=== PATIENT | male | born 1955 | race Caucasian/White ===

== ENCOUNTER 2017-12-22 11:18 | Emergency (ER) | payer MEDICARE ==
[~2017-12-22] VITALS: Ht 172.7 cm; Wt 72.6 kg
[~2017-12-22 11:18] MED LIST: ACETAMINOPHEN650 M5 PO; APAP650 PO; ASPIRIN325 PO; B COMPLETE1 EAC1 PO; BENAZEPRIL-HCT1 EA10 PO; BENAZEPRIL-HCT1 EACH PO; COLACE100 MG PO; DEPO-TESTO100 MG/1 M IM; DEPO-TESTO200 MG/1 M IM; DILAUDID4 MG PO; FISH OIL 1,001000 M2 PO; FLOMAX0.4 MG PO; HYDROCODON-ACE1 EAC7 PO; HYDROCODONE-AP1 EAC6 PO; INDOCIN25 MG/5 ML PO; INDOMETHACIN 2525 MG PO; METAMUCIL PAC1 UDPKT PO; MILK OF MA2400 MG/10 PO; MIRALAX17 GM PO; NITROGLYCERIN0.4 MG SUBLING; OSTEO BI-FLEX1 EAC1 PO; OSTEOMATRIX PO; OXYCODONE HCL 55 MG PO; OXYCONTIN10 M1 PO; PREDNISONE 10 M10 M1 PO; PREDNISONE 10 M10 MG PO; XANAX 0.5 MG0.5 MG PO; XARELTO10 MG PO; ZANAFLEX4 MG PO; ZOCOR20 MG PO
[2017-12-22 12:57] LABS: ABSOLUTE EOSINOPHILS 0.2 thou/uL (0.0-0.7); ABSOLUTE MONOCYTES 0.4 thou/uL (0.0-1.2); ABSOLUTE NEUTROPHILS 3.9 thou/uL (1.6-8.1); BASOPHILS 0.6 %; HEMATOCRIT 44.9 % (42.0-52.0); HEMOGLOBIN 15.4 gm/dL (14.0-18.0); LYMPHOCYTES 18.4 %; MCH 32.5 pg (26.0-34.0); MCHC 34.3 g/dL (28.0-37.0); MCV 94.8 fL (80.0-100.0); MONOCYTES 7.6 %; MPV 8.5 fl. (7.2-11.1); NUCLEATED RBCS 0 /100WBC; PLATELET COUNT* 301 thou/uL (150-400); POLYS 69.4 %; RBC 4.73 mil/uL (4.50-6.00); RDW-CV 12.4 % (10.5-14.5); WBC 5.6 thou/uL (4.0-11.0)
[2017-12-22 13:07] LABS: CALCIUM 8.6 mg/dL (8.5-10.1); POTASSIUM 4.1 mmol/L (3.5-5.1)
[2017-12-22 13:12] LABS: ALBUMIN 3.4 g/dL (3.4-5.0); TOTAL BILIRUBIN 0.3 mg/dL (<0.1-1.0); TOTAL PROTEIN 6.7 g/dL (6.4-8.2)
[2017-12-22 14:03] LABS: URINE BILIRUBIN NEGATIVE (Negative); URINE BLOOD NEGATIVE (Negative); URINE CLARITY CLEAR; URINE COLOR YELLOW; URINE GLUCOSE-RANDOM NEGATIVE (Negative); URINE KETONES NEGATIVE (Negative); URINE LEUKOCYTES-REFLEX NEGATIVE (Negative); URINE NITRITE-REFLEX NEGATIVE (Negative); URINE PROTEIN NEGATIVE (Negative); URINE SPECIFIC GRAVITY 1.025 (1.005-1.030); URINE UROBILINOGEN 0.2 E.U./dl (0.2-1.0)
[2017-12-22] MEDS ORDERED: FLOMAX0.4 MG PO (14:24)
[2017-12-22 14:59] VITALS: BP 97/67
== END 2017-12-22 15:00 | disposition home or self-care (01) ==
LOC: M.ERS 11:18
PROVIDERS: Nurse Practitioner Family
DX: R33.9 Retention of urine, unspecified (principal); R30.0 Dysuria; I10 Essential (primary) hypertension; E78.00 Pure hypercholesterolemia, unspecified; M19.90 Unspecified osteoarthritis, unspecified site; Z96.659 Presence of unspecified artificial knee joint

== ENCOUNTER 2020-03-15 12:17 | Emergency (ER) | payer OTHER ==
[~2020-03-15] VITALS: Ht 175.3 cm; Wt 79.4 kg
[2020-03-15] MEDS ORDERED: HYDROCODONE-IB1 EAC3 PO (12:29)
[2020-03-15] MEDS ORDERED: NORCO 5-325 TA1 EAC2 PO (13:51)
[2020-03-15] MEDS ORDERED: FLEXERIL PO (13:56)
[2020-03-15 13:57] VITALS: BP 127/79
== END 2020-03-15 13:58 | disposition home or self-care (01) ==
LOC: M.ERS 12:17
DX: M25.552 Pain in left hip (principal); M54.5 Low back pain; I10 Essential (primary) hypertension; E78.00 Pure hypercholesterolemia, unspecified; M06.9 Rheumatoid arthritis, unspecified; Z96.653 Presence of artificial knee joint, bilateral; Z90.89 Acquired absence of other organs

== ENCOUNTER → 2020-03-25 | Outpatient (CLI) | payer OTHER ==
[~2020-03-25] MED LIST changes: +FLEXERIL PO; +HYDROCODONE-IB1 EAC3 PO; +NORCO 5-325 TA1 EAC2 PO
== END ==
LOC: M.RAD 15:19
PROVIDERS: ATTEND Registered Nurse Diabetes Educator
DX: M16.12 Unilateral primary osteoarthritis, left hip (principal); M47.26 Other spondylosis with radiculopathy, lumbar region; M47.816 Spondylosis without myelopathy or radiculopathy, lumbar region; M54.32 Sciatica, left side

== ENCOUNTER → 2020-04-10 | Outpatient (CLI) | payer OTHER ==
[~2020-04-10] MED LIST changes: +DURAGESIC1 EAC5 TRANSDERM; +MEDROLDOSEPACK PO; +TESTONE CI200 MG/1 M IM; +TORADOL 10 MG T10 MG PO
--- NOTE | 2020-04-22 14:22 | PAINCON ---
[address] [address] PAIN MANAGEMENT CONSULTATION Name: FATOU HAYS Room: [facility] Iyer#: [id number] Admission: 04/10/20 Attend Phys: Graeme Gama MD Discharge: Date of : 57 Report #: [id number] THIS REPORT FOR: //name// cc: Mary Hurst Tammy RNP ~ THIS REPORT FOR: //name// CC: Graeme Hurst DATE OF SERVICE: 04/10/2020 PRIMARY CAREGIVER: Mary Hurst NP CHIEF COMPLAINT: Back and leg pain. HISTORY: The patient is a 64-year-old gentleman who has been referred to the pain clinic because of back and leg pain. The patient had undergone surgery in the past because of spinal stenosis. He sat on a toilet seat. Feels that he sat down a little more vigorously than he would have liked. He has been having pain and discomfort in the left leg that has become more problematic. He has been having some difficulty walking. He has used hydrocodone to help with the pain control. He has also used ibuprofen. Has some pain in his knees. He feels that his legs have given out on a couple of occasions. He has used Medrol Dosepak and does have problems with cataracts. He is considering surgery. ALLERGIES: No known drug allergies. CURRENT MEDICATIONS: Hydrocodone/ibuprofen 7.5/200 t.i.d., Flexeril 10 mg, Medrol Dosepak on 2 occasions. The patient has been on antibiotics because of a urinary tract infection. Flomax 0.4 mg, benazepril/hydrochlorothiazide 20/12.5, Zocor 20 mg, indomethacin 25 mg, alprazolam 0.5 mg, tizanidine 4 mg p.r.n. spasm. PAST MEDICAL HISTORY: Hypertension, hypercholesterolemia, rheumatoid arthritis, spinal stenosis, bilateral knee replacements, tonsillectomy as a child. PAST SURGICAL HISTORY: 1. Posterior cervical fusion. 2. Tendon repair, left hand. 3. Bilateral total knee arthroplasties. 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 He has a history significant for alcohol and cocaine use. Denied use of IV drugs. A 70-ewpf-ozid smoking history. Moderate alcohol [place] [address] PAIN MANAGEMENT CONSULTATION Name: FATOU HAYS Room: [employer]#: [id number] Admission: 04/10/20 Attend Phys: Graeme Gama MD Discharge: Date of : 57 Report #: [id number] PAIN CLINIC ASSESSMENT AND PQRS: 1. History of osteoarthritis. The patient has some osteoarthritic changes in his knees. He has had bilateral knee replacements. 2. Height 5 feet 9 inches, weight 179 pounds, BMI is 26. 3. Vital signs: Blood pressure 125/73, heart rate 86, respiratory rate 16, room air saturation 97%, temperature 98.2. 4. Pain intensity 1-2/10. 5. Fall history: The patient has not fallen in the last few weeks. 6. Blood thinner. The patient is not on a blood thinning medication. 7. Hypertension. The patient is being treated for hypertension. 8. Opioids greater than 6 weeks. The patient receives medication from his primary. 9. Risk assessment tool, moderate for opioid use. 10. Functional assessment tool, reviewed. 11. Recreational drug use: The patient is not using recreational drugs at this juncture. 12. Tobacco: The patient has smoked in the past. 13. Alcohol: The patient denies significant use of alcoholic beverages. PHYSICAL EXAMINATION: GENERAL: The patient is a well-developed, well-nourished white male. Appears his stated age. He is alert and oriented x 3. His affect is appropriate. Speech is fluent. HEENT: Normocephalic, atraumatic. Extraocular eye muscles intact. Sclerae nonicteric. Mucous membranes are moist. The patient is wearing a facial covering. NECK: Without adenopathy. Well-healed scar. EXTREMITIES: Upper extremity muscle strength judged to be 5-/5 for the major muscle groups in the upper extremity. Lower extremity, the patient has a well-healed scar in the lower portion of his back. Complains of pain and discomfort in the low back area with pain that is radiating down into the left sciatic nerve. Well-healed scars on the knees. IMPRESSION: Lumbar radiculopathy with L5-S1 dermatomal distribution involving the right leg. RECOMMENDATIONS: We would consider an epidural steroid injection. The patient states that he is going to have evaluation for cataract surgery. The patient will return to the Pain Clinic after he gets information regarding his cataract surgeries. We explained that steroids could be problematic with post-surgical healing. The patient will return to the Pain Clinic, at which time he will then be considered for an epidural steroid injection should his pain continue. [address] [address] PAIN MANAGEMENT CONSULTATION Name: FATOU HAYS Room: [facility] Judie.#: [id number] Admission: 04/10/20 Attend Phys: Graeme Gama MD Discharge: Date of : 57 Report #: [id number] We would like to thank you for letting us participate in his care. We hope he continues to improve. <ELECTRONICALLY SIGNED> By: Graeme Gama MD 04/22/20 1422 1233 [id number] Gama MD /[facility]
== END ==
LOC: M.PC 10:29
PROVIDERS: ATTEND Anesthesiology Pain Medicine
DX: M54.17 Radiculopathy, lumbosacral region (principal); I10 Essential (primary) hypertension; E78.00 Pure hypercholesterolemia, unspecified; M06.9 Rheumatoid arthritis, unspecified; Z96.653 Presence of artificial knee joint, bilateral; Z98.1 Arthrodesis status; Z68.26 Body mass index [BMI] 26.0-26.9, adult; Z79.891 Long term (current) use of opiate analgesic; Z79.899 Other long term (current) drug therapy

== ENCOUNTER 2020-04-14 13:30 | Emergency (ER) | payer OTHER ==
[~2020-04-14] VITALS: Ht 175.3 cm; Wt 78.0 kg
[~2020-04-14 13:30] MED LIST changes: -DURAGESIC1 EAC5 TRANSDERM; -MEDROLDOSEPACK PO; -TESTONE CI200 MG/1 M IM; -TORADOL 10 MG T10 MG PO
[2020-04-14] MEDS ORDERED: MEDROLDOSEPACK PO (18:28)
[2020-04-14] MEDS ORDERED: TORADOL 10 MG T10 MG PO (18:28)
[2020-04-14 18:41] VITALS: BP 112/74
[2020-04-15] MEDS ORDERED: FLEXERIL PO (12:39)
[2020-04-15] MEDS ORDERED: TESTONE CI200 MG/1 M IM (12:40)
== END 2020-04-14 18:42 | disposition home or self-care (01) ==
LOC: M.ERS 13:30
DX: M54.32 Sciatica, left side (principal); M25.552 Pain in left hip; R10.2 Pelvic and perineal pain; I10 Essential (primary) hypertension; E78.00 Pure hypercholesterolemia, unspecified; M06.9 Rheumatoid arthritis, unspecified; Z79.899 Other long term (current) drug therapy

== ENCOUNTER → 2020-04-17 | Outpatient (CLI) | payer OTHER ==
[~2020-04-17] MED LIST changes: +DURAGESIC1 EAC5 TRANSDERM; +MEDROLDOSEPACK PO; +TESTONE CI200 MG/1 M IM; +TORADOL 10 MG T10 MG PO
== END | disposition home or self-care (01) ==
LOC: M.PC 11:22
PROVIDERS: ATTEND Anesthesiology Pain Medicine
DX: M54.16 Radiculopathy, lumbar region (principal); G89.29 Other chronic pain; I10 Essential (primary) hypertension; E78.00 Pure hypercholesterolemia, unspecified; M06.9 Rheumatoid arthritis, unspecified; Z96.653 Presence of artificial knee joint, bilateral; Z98.890 Other specified postprocedural states; Z79.899 Other long term (current) drug therapy; Z87.442 Personal history of urinary calculi

== ENCOUNTER 2020-04-21 12:45 | Emergency (ER) | payer OTHER ==
[~2020-04-21] VITALS: Ht 175.3 cm; Wt 77.1 kg
[~2020-04-21 12:45] MED LIST changes: -DURAGESIC1 EAC5 TRANSDERM
[2020-04-21] MEDS ORDERED: DURAGESIC1 EAC5 TRANSDERM (15:42)
[2020-04-21 16:08] VITALS: BP 135/97
== END 2020-04-21 16:09 | disposition home or self-care (01) ==
LOC: M.ERS 12:45
DX: M54.32 Sciatica, left side (principal); I10 Essential (primary) hypertension; E78.00 Pure hypercholesterolemia, unspecified; M06.9 Rheumatoid arthritis, unspecified; Z79.899 Other long term (current) drug therapy

== ENCOUNTER → 2020-05-13 | Outpatient (CLI) | payer OTHER ==
[~2020-05-13] MED LIST changes: +CEFDINIR300 MG PO; +DURAGESIC1 EAC5 TRANSDERM; +MIRALAX119 GM PO; +MOVANTIK25 MG PO; +PERCOCET 10-321 EAC1 PO; +ZANAFLEX4 M1 PO
--- NOTE | ~2020-05-13 | PAINCON ---
[address] [address] PAIN MANAGEMENT CONSULTATION Name: FATOU HAYS [facility] Iyer#: [id number] Admission: 05/13/20 Attend Phys: Graeme Gama MD Discharge: Date of : 57 Report #: [id number] THIS REPORT FOR: //name// cc: Mary Hurst Tammy RNP ~ CC: Graeme Hurst DATE OF SERVICE: 05/13/2020 CHIEF COMPLAINT: Back pain. HISTORY: The patient is a 65-year-old gentleman who has been seen in the Pain Clinic because of back pain. He has undergone surgeries in the past because of spinal stenosis in the back area. He noticed worsening of his pain after sitting down hard on a toilet seat. He continues to have pain and discomfort. This involves his left leg, which has been problematic. He also notes some increased pain in the left hip. He has been provided with hydrocodone to help with the pain. He feels that this medication is not as effective as he would like for to be. He does have some tingling down into his left foot. He has been to the Emergency Room. He has told us that he has urinary tract infection and is taking antibiotics for this. He has returned today for followup and treatment. ALLERGIES: No known drug allergies. CURRENT MEDICATIONS: 1. Hydrocodone/ibuprofen 7.5/200 t.i.d. 2. Flexeril 10 mg. 3. Medrol Dosepak has been taken on occasion. 4. The patient has been on antibiotics because of urinary tract infection. 5. Flomax 0.4 mg. 6. Benazepril/hydrochlorothiazide 20/12.5. 7. Zocor 20 mg. 8. Indomethacin 25 mg. 9. Alprazolam 0.5 mg. 10. Tizanidine 4 mg p.r.n. spasms. PAIN CLINIC ASSESSMENT AND PQRS: 1. The patient has a history of osteoarthritis. He has some arthritic changes in his knees. He has had bilateral knee replacements. 2. Height 5 feet 9 inches, weight 177 pounds, BMI is 26.4. 3. Vital Signs: Blood pressure 123/86, heart rate 108, respiratory rate 20, room air saturation 96%, temperature 97.4. 4. Pain intensity: 10/10. 5. Fall history: The patient has not fallen in the last 3 [place] [address] PAIN MANAGEMENT CONSULTATION Name: NICKFATOU DAHL Chago Room: [facility]#: [id number] Admission: 05/13/20 Attend Phys: Graeme Gama MD Discharge: Date of : 57 Report #: [id number] 6. Blood thinner: The patient is not on a blood thinning medication. 7. Hypertension: The patient is being treated for hypertension. 8. Opioids greater than 6 weeks: The patient receives medication from his primary. 9. Risk assessment tool: Moderate for opioid use. 10. Functional assessment tool: Reviewed. 11. Recreational drug use: The patient denies using recreational drug use at this juncture. 12. Tobacco: The patient has not smoked in the past. 13. Alcohol: The patient denies significant use of alcoholic beverages. PHYSICAL EXAMINATION: GENERAL: The patient is a well-developed, well-nourished white male. Appears his stated age. He is alert and oriented x 3. He is somewhat anxious. HEENT: Normocephalic, atraumatic. Extraocular eye muscles are intact. Sclerae nonicteric. The patient is wearing a facial covering. NECK: Without adenopathy, has a well-healed scar. EXTREMITIES: Upper extremity muscle strength judged to be 5-/5 for the major muscle groups in the upper extremity. Lower extremity, the patient has some well-healed scar in the lower portion of his back. Complains of pain and discomfort in the low back area and has pain that radiates down to the left leg in the sciatic nerve distribution. Well-healed scar also on his knees. IMPRESSION: Lumbar radiculopathy in the L5-S1 dermatomal distribution involving the right leg. RECOMMENDATION: The patient had noticed improvement after the epidural injection. He states that he bumped against the ____ lower portion of his back and that seems to have set things off. He feels that the pain is a killer. Considering having cataract surgery. He would like to undergo an injection. We explained to the patient that he needs to be sure that the urinary tract problem has been solved. Given that steroids can decrease one's immune response and the patient could have a worsening of his infection should his immune system be decreased by use of steroids. While the patient try oxycodone 10/325 for the pain. He will use this instead of hydrocodone 7.5 mg he was taking. We will have the patient try Movantik 25 mg for constipation that he gets as a result of opioid use. The patient will return to the Pain Clinic, at which time we will consider the possibility of an epidural steroid injection. We would like to thank you for letting us participate in his care. We hope he continues to improve. By: 0900 [id number]. MD devin Adhikari
== END ==
LOC: M.PC 09:28
PROVIDERS: ATTEND Anesthesiology Pain Medicine
DX: M54.5 Low back pain (principal)

== ENCOUNTER 2020-05-21 18:36 | Inpatient (IN) | payer OTHER ==
[~2020-05-21] VITALS: Ht 175.3 cm; Wt 80.3 kg
--- NOTE | ~2020-05-21 | EMS ---
[address] [address] EMS Patient Care Report Name: FATOU HAYS Room: [address] IN M.R.#: [id number] Admission: 05/21/20 Attend Phys: Albert Castle Discharge: 05/23/20 Date of : 56 Report #: [id number] THIS REPORT FOR: //name// Report Transmitted: 05/30/2020 11:42 EMS Care Summary [facility] Incident [id number] @ 05/21/2020 17:55 Incident Location [address] [place] [address] Patient Fatou Hays Male, 65 Years 1955 Patient Address [address] [place] [address] Patient History Hypertension (HTN), Patient Allergies No known allergies, Chief Complaint Constipation Disposition Transported No Lights/[place] Dispatch Reason Sick Person Transported To [facility] Narrative on scene of a 65 y/o male c/o constipation for 5 days and unable to urinate for 24 hours. pt found walking around house a/ox4 in mild distress. per pt he has been trying to use the bathroom unsuccessfully for most of the day. pt ambulated to micu and secured on gurney in position of comfort. vitals checked and pt transported to [facility] c-2. en route pt reassessed. pt related that he has some abd pain associated with the constipation. pt denies [address] [address] EMS Patient Care Report Name: FATOU HAYS Room: [address] IN .R.#: [id number] Admission: 05/21/20 Attend Phys: Albert Castle Discharge: 05/23/20 Date of : 56 Report #: [id number] any c/p SOB headache N/V dizziness. secondary had no other complaints noted. vitals rechecked with no changes noted. arrive [facility]'s transfer to panel laminator Initial Vitals @18:21Pain: 8, @18:31Pain: 02/17, @18:21P: 100,R: 20,BP: 110/70, @18:31P: 106,R: 20,BP: 118/74, @18:21GCS: 15, @18:31GCS: 15, @18:17 Assessments @18:17MENTAL:SKIN:HEENT:LUNG SOUNDS:ABDOMEN:PELVIS//GI:EXTREMITIES:PULSE:NEURO: Impression Constipation Timeline 18:17,Call Received 17:54,Dispatch Notified 17:54,Psap Call 17:55,Dispatched 17:55,En Route 18:15,On Scene 18:17,At Patient 18:17,BP: / M,PULSE: ,RR: R,SPO2: Ox,ETCO2: ,BG: ,PAIN: ,GCS: , 18:21,Depart Scene 18:21,BP: / M,PULSE: ,RR: R,SPO2: Ox,ETCO2: ,BG: ,PAIN: 8,GCS: , 18:21,BP: 110/70 M,PULSE: 100,RR: 20 R,SPO2: Ox,ETCO2: ,BG: ,PAIN: ,GCS: , 18:21,BP: / M,PULSE: ,RR: R,SPO2: Ox,ETCO2: ,BG: ,PAIN: ,GCS: 15, 18:31,BP: / M,PULSE: ,RR: R,SPO2: Ox,ETCO2: ,BG: ,PAIN: 8,GCS: , 18:31,BP: 118/74 M,PULSE: 106,RR: 20 R,SPO2: Ox,ETCO2: ,BG: ,PAIN: ,GCS: , 18:31,BP: / M,PULSE: ,RR: R,SPO2: Ox,ETCO2: ,BG: ,PAIN: ,GCS: 15, 18:31,At Destination 18:44,Call Closed Disclaimer v1.1 Copyright 2020 [employer] This EMS Care Summary contains data elements from the applicable legal record (which may be displayed differently). It is designed to provide pertinent information for the following purposes: continuity of care, clinical quality, and state data reporting. The complete legal record is available to ED staff and administrators of the receiving hospital in [email or web address]'s Patient Tracker[place] [address] EMS Patient Care Report Name: FATOU HAYS Room: [address] IN M.R.#: [id number] Admission: 05/21/20 Attend Phys: Albert Castle Discharge: 05/23/20 Date of : 57 Report #: [id number] is provided "as is."
--- NOTE | ~2020-05-21 | CON ---
[address] [address] CONSULTATION Name: FATOU HAYS Room: [address] IN ..#: [id number] Admission: 05/21/20 Attend Phys: Albert Castle Discharge: Date of : 56 Report #: [id number] THIS REPORT FOR: //name// cc: Mary Hurst Tammy RNP ~ DATE OF SERVICE: 05/22/2020 HISTORY OF PRESENT ILLNESS: This is a pleasant 65-year-old male with past medical history significant for hypertension, BPH, and chronic kidney disease, who is presenting for evaluation of abdominal pain. The patient reports that he began taking fentanyl patch for his previous history of chronic pain and began developing abdominal distention. Prior to hospitalization, he had not had a bowel movement in 2 days. The patient was given 2 doses of magnesium citrate and he has had 2 large bowel movements and since then, his pain has completely disappeared. The patient denies any hematochezia, hematemesis, or weight loss. The patient denies having a screening colonoscopy in the past and he would like for us to set up a screening colonoscopy. PAST MEDICAL HISTORY: CKD, BPH, prior history of sepsis from MRSA infection. PAST SURGICAL HISTORY: The patient had bilateral total knee replacement and surgery for spinal stenosis, which is complicated by MRSA infection. SOCIAL HISTORY: The patient reports heavy alcohol abuse in the past. He reports drinking 10-12 drinks per day, but he quit about 2 months back. Denies smoking or recreational drug use. FAMILY HISTORY: There is no family history of colon cancer or Sarmiento-related neoplasia. REVIEW OF SYSTEMS: A comprehensive 10-point review of systems is negative except for what was mentioned in the HPI. PHYSICAL EXAMINATION: VITAL SIGNS: Temperature 37.1, pulse rate 92, respirations ____, blood pressure 113/87. GENERAL: The patient is alert, awake, oriented x 3. HEENT: Pupils are equal, round, reactive to light and accommodation. Mucous membranes are moist. There is no congestion. LUNGS: Clear to auscultation bilaterally. CARDIOVASCULAR: Rate and rhythm regular, S1, S2 present. ABDOMEN: Soft. There is no distention, guarding or rigidity. EXTREMITIES: Warm, well perfused. LABORATORY DATA: Hemoglobin 15.4, hematocrit 46.3, platelet count 14.6, WBC count 375. Sodium 134, potassium 4.8, chloride ____, bicarbonate 27, BUN 56, [place] [address] CONSULTATION Name: FATOU HAYS Room: [address]#: [id number] Admission: 05/21/20 Attend Phys: Albert Castle Discharge: Date of : 56 Report #: [id number] creatinine 2.7, total bilirubin 0.7, AST 22, ALT 21, alkaline phosphatase 46, lipase 1059. IMAGING: CT abdomen and pelvis, fecal impaction in the rectum, moderate severely distended, mild presacral edema, constipation throughout the colon, no evidence of pancreatitis. ASSESSMENT AND PLAN: Pleasant 65-year-old gentleman with history of chronic pain, who started taking fentanyl patch presenting with fecal impaction. This has resolved. The patient currently is in no pain. The patient would like to set up for an outpatient screening colonoscopy. We can arrange for that. Elevated lipase. While the patient has elevated lipase, he no longer has any abdominal pain and there is no CT evidence of pancreatitis, no followup would be recommended for this at this time. Thank you for this consultation. By: 0932 Mayda Echeverria MD /mike
[~2020-05-21 18:36] MED LIST changes: -CEFDINIR300 MG PO; -MIRALAX119 GM PO; -ZANAFLEX4 M1 PO
[2020-05-21 18:52] VITALS: BP 90/64
[2020-05-21 19:37] LABS: HEMATOCRIT 48.3 % (42.0-52.0); HEMOGLOBIN 16.1 gm/dL (14.0-18.0); MCHC 33.3 g/dL (28.0-37.0); MCV 93.1 fL (80.0-100.0); MPV 7.6 fl. (7.2-11.1); NUCLEATED RBCS 0 /100WBC; PLATELET COUNT* 393 thou/uL (150-400); RBC 5.19 mil/uL (4.50-6.00); RDW-CV 13.1 % (10.5-14.5); WBC 20.5 thou/uL (4.0-11.0)
[2020-05-21 19:43] LABS: CALCIUM 8.9 mg/dL (8.5-10.1); POTASSIUM 4.6 mmol/L (3.5-5.1)
[2020-05-21 19:52] LABS: ALBUMIN 4.1 g/dL (3.4-5.0); TOTAL BILIRUBIN 0.4 mg/dL (<0.1-1.0); TOTAL PROTEIN 7.4 g/dL (6.4-8.2)
[2020-05-21 19:55] LABS: URINE BLOOD 1+ (Negative); URINE CLARITY CLEAR; URINE COLOR YELLOW; URINE GLUCOSE-RANDOM NEGATIVE (Negative); URINE KETONES NEGATIVE (Negative); URINE LEUKOCYTES-REFLEX NEGATIVE (Negative); URINE NITRITE-REFLEX NEGATIVE (Negative); URINE PROTEIN NEGATIVE (Negative); URINE SPECIFIC GRAVITY 1.025 (1.005-1.030); URINE UROBILINOGEN 0.2 E.U./dl (0.2-1.0)
[2020-05-21 20:00] LABS: ICTOTEST (BILI CONFIRMATORY) Negative (Negative); URINE BILIRUBIN 1+ (Negative)
[2020-05-21 20:03] LABS: ABSOLUTE MONOCYTES 0.8 thou/uL (0.0-1.2); ABSOLUTE NEUTROPHILS 18.7 thou/uL (1.6-8.1)
[2020-05-21 20:05] LABS: CLUMPED PLTS RARE; LARGE PLATELETS RARE; PLATELET ESTIMATE ADEQUATE
[2020-05-21 20:09] LABS: SQUAMOUS 0-3 Few /LPF (0-3)
[2020-05-21 20:10] LABS: AMORPHOUS URATES Few /LPF (None Seen); BACTERIA-REFLEX 1-9 Few /HPF (None Seen); FINE GRANULAR CASTS 0-3 Few /LPF (None Seen); HYALINE CASTS 4-10 Moderate /LPF (None Seen); URINE RBC 3-10 Few /HPF (0-2); URINE WBC-REFLEX 0-5 Rare /HPF (0-5)
[2020-05-21 23:16] VITALS: BP 109/73
[2020-05-21 23:25] VITALS: BP 121/56
[2020-05-22 04:00] VITALS: BP 115/72
[2020-05-22 04:27] LABS: ABSOLUTE MONOCYTES 0.8 thou/uL (0.0-1.2); ABSOLUTE NEUTROPHILS 12.8 thou/uL (1.6-8.1); BASOPHILS 0.2 %; EOSINOPHILS 0.3 %; HEMATOCRIT 46.3 % (42.0-52.0); HEMOGLOBIN 15.4 gm/dL (14.0-18.0); LYMPHOCYTES 6.7 %; MCH 31.2 pg (26.0-34.0); MCHC 33.3 g/dL (28.0-37.0); MCV 93.7 fL (80.0-100.0); MONOCYTES 5.3 %; MPV 7.7 fl. (7.2-11.1); NUCLEATED RBCS 0 /100WBC; PLATELET COUNT* 375 thou/uL (150-400); POLYS 87.5 %; RBC 4.94 mil/uL (4.50-6.00); RDW-CV 13.1 % (10.5-14.5); WBC 14.6 thou/uL (4.0-11.0)
[2020-05-22 05:02] LABS: ALBUMIN 3.8 g/dL (3.4-5.0); CALCIUM 8.4 mg/dL (8.5-10.1); POTASSIUM 4.8 mmol/L (3.5-5.1); TOTAL BILIRUBIN 0.7 mg/dL (<0.1-1.0); TOTAL PROTEIN 7.3 g/dL (6.4-8.2)
[2020-05-22 05:16] LABS: CREATININE 2.7 mg/dL (0.6-1.3)
[2020-05-22 08:00] VITALS: BP 93/67
[2020-05-22] MEDS ORDERED: ZANAFLEX4 M1 PO (09:50)
[2020-05-22 12:37] VITALS: BP 112/91
--- NOTE | 2020-05-22 16:27 | EKG ---
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1955 Requested By: Nellie Davison Order Number: [id number] Mony MD: Ahmet Hardy Measurements Intervals [place] Rate: 109 P: 41 [place]: 186 QRS: 35 QRSD: 85 T: 7 QT: 307 QTc: 414 Interpretive Statements Sinus tachycardia Probable left atrial enlargement Abnormal R-wave progression, early transition Compared to ECG 09/01/2015 15:14:02 Uncertain supraventricular rhythm no longer present Intraventricular conduction delay no longer present Myocardial infarct finding no longer present Electronically Signed On 05-22-2020 16:27:19 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 05/22/20 1627 03 03 Ahmet Hardy MD, [facility] /EPI
[2020-05-22 17:08] VITALS: BP 113/87
[2020-05-22 20:00] VITALS: BP 124/73
[2020-05-23] VITALS: BP 114/39; BP 91/63
[2020-05-23 04:00] VITALS: BP 97/62
--- NOTE | 2020-05-23 05:15 | CON ---
[address] [address] CONSULTATION Name: FATOU HAYS Room: [address] IN M.R.#: [id number] Admission: 05/21/20 Attend Phys: Albert Castle Discharge: Date of : 57 Report #: [id number] THIS REPORT FOR: //name// cc: Mary Hurst Tammy RNP ~ DATE OF SERVICE: 05/22/2020 NEPHROLOGY CONSULTATION CONSULTING PHYSICIAN: Dr. Davison. REASON FOR NEPHROLOGY CONSULTATION: Acute kidney injury. REASON FOR ADMISSION: Constipation. HISTORY OF PRESENT ILLNESS: This is a 65-year-old male who reports that he has a history of prostatitis and he follows with Urology and was recently started on Bactrim and has been constipated for 8 days, which made him come to the hospital. CT scan of his abdomen showed fecal impaction and Acosta catheter was placed because he was retaining urine and he had not urinated in 24 hours. He has had 2700 mL of urine output overnight and he also states that he had a bowel movement as well. His blood pressure was also low when he came in. He was also not eating and drinking well and was also taking indomethacin, benazepril, hydrochlorothiazide and other NSAIDs at home. He states he follows with Dr. Rodriges from Urology who was treating him for prostatitis and was supposed to be on it for at least a month. He looks very anxious to go home and he seems to be very restless. Abdominal CT scan did not show any hydronephrosis and Acosta catheter had already been placed before the CT was done. ALLERGIES: No known drug allergies. REVIEW OF SYSTEMS: As mentioned in history of present illness, otherwise 10-point review of systems are negative. PAST MEDICAL AND SURGICAL HISTORY: Includes dyslipidemia, hypertension, rheumatoid arthritis, spinal stenosis, bilateral knee replacement and tonsillectomy as a child and according to the patient, he has prostatitis being treated by Urology, Dr. Rodriges. HOME MEDICATIONS: Include oxycodone, naloxegol, fentanyl, tamsulosin, benazepril, hydrochlorothiazide, simvastatin, indomethacin, p.r.n. ibuprofen, alprazolam, cyclobenzaprine, testosterone. FAMILY HISTORY: Reviewed. SOCIAL HISTORY: Does not smoke, drink alcohol [place] [address] CONSULTATION Name: FATOU HAYS Room: [address]#: [id number] Admission: 05/21/20 Attend Phys: Albert Castle Discharge: Date of : 57 Report #: [id number] according to the patient. PHYSICAL EXAMINATION: VITAL SIGNS: Blood pressure is 115/72, pulse ox is 94% on room air, respiratory rate is 18, pulse rate is 95, temperature 36.8. GENERAL: He is awake, alert, oriented x 3, seems to be very restless and anxious. HEAD AND THROAT: Atraumatic and normocephalic. Conjunctivae normal. EARS, NOSE, AND THROAT: Normal ears and nose. Mucous membranes are dry. NECK: There is no JVD. CHEST: Bilaterally clear to auscultation. No crackles or wheezing. CARDIOVASCULAR: S1, S2 normal. No murmurs. ABDOMEN: Soft, nondistended, nontender. Bowel sounds are present. GENITOURINARY: He has a Acosta catheter, which is draining clear urine. EXTREMITIES: Lower extremities, there is no lower extremity edema. NEUROLOGICAL FUNCTION: Grossly intact. PSYCHIATRIC: He looks very anxious. LABORATORY DATA: His sodium is 134, creatinine is down from 4.0 to 2.7 and white count is 14.6, which is down from 20.5. Other labs were reviewed. IMAGING: Abdominal pelvic CT scan was reviewed. ASSESSMENT: 1. Acute kidney injury in the setting of acute urinary retention, hypotension, use of NSAIDs, benazepril, hydrochlorothiazide. No evidence of hydronephrosis on CT abdomen. UA revealed 3-10 rbc's per high power field with hyaline as well as granular casts. 2. Fecal impaction, constipation for the last 8 days and could be associated with opioid use. We will defer to primary team. 3. Borderline hypotension in a patient with hypertension, which could be because of volume depletion. 4. The patient reports he was diagnosed with prostatitis recently and was put on Bactrim, which also contributed to acute renal insufficiency. 5. Dyslipidemia as per primary team. PLAN: 1. Continue with IV fluids, normal saline at 100 mL an hour and continue with Acosta catheter. 2. I will leave it up to primary team when they want to give him a voiding trial, looks like his constipation was causing his urinary retention. 3. I would not recommend continuing Bactrim for prostatitis, call his urologist and see if an alternative medicine can be prescribed to him. 4. Do not continue indomethacin or other NSAIDs, benazepril, hydrochlorothiazide. 5. Creatinine is improving so far and there is nothing else to add from [address] [address] CONSULTATION Name: FATOU HAYS Room: [address] IN [facility].#: [id number] Admission: 05/21/20 Attend Phys: Albert Castle Discharge: Date of : 57 Report #: [id number] nephrology standpoint. He needs to follow with Urology as outpatient and if his creatinine does not normalize he can follow with us as an outpatient as well in 2-3 weeks after discharge. Thank you for this consultation. Discussed with the patient's nurse and the patient. I will be signing off now. The patient also wants to go home today and I am not sure if he is ready to go home just yet. We would recommend case management to look into his home situation, because he was worried that his house is not locked at the moment. This was also discussed with the patient's nurse. <ELECTRONICALLY SIGNED> By: Tiffany Hunt MD 05/23/20 0515 0857 [id number] Hunt MD /nt
[2020-05-23 05:19] LABS: CALCIUM 7.7 mg/dL (8.5-10.1); POTASSIUM 4.5 mmol/L (3.5-5.1)
[2020-05-23 05:28] LABS: CREATININE 1.7 mg/dL (0.6-1.3)
[2020-05-23 08:00] VITALS: BP 82/56
[2020-05-23 08:20] VITALS: BP 111/74
[2020-05-23 12:21] VITALS: BP 111/74
[2020-05-23] MEDS ORDERED: CEFDINIR300 MG PO (13:32)
[2020-05-23 17:04] VITALS: BP 135/78
[2020-05-23] MEDS ORDERED: MIRALAX119 GM PO (17:12)
[2020-05-29] MEDS ORDERED: PERCOCET 10-321 EAC1 PO (12:58)
== END 2020-05-23 17:05 | disposition home or self-care (01) | DRG 438 ==
LOC: M.ERS 18:36 → M.TBA-ER 22:03 → M.2W 22:03
PROVIDERS: Nurse Practitioner Family; Personal Emergency Response Attendant; ADMIT Internal Medicine; ATTEND Internal Medicine
DX: K85.90 Acute pancreatitis without necrosis or infection, unspecified (principal); N17.0 Acute kidney failure with tubular necrosis; R65.11 Systemic inflammatory response syndrome (SIRS) of non-infectious origin with acute organ dysfunction; K56.600 Partial intestinal obstruction, unspecified as to cause; E78.00 Pure hypercholesterolemia, unspecified; M06.9 Rheumatoid arthritis, unspecified; D72.829 Elevated white blood cell count, unspecified; E78.5 Hyperlipidemia, unspecified; I95.9 Hypotension, unspecified; R33.9 Retention of urine, unspecified; I12.9 Hypertensive chronic kidney disease with stage 1 through stage 4 chronic kidney disease, or unspecified chronic kidney disease; G89.29 Other chronic pain; F41.9 Anxiety disorder, unspecified; F43.10 Post-traumatic stress disorder, unspecified; N18.9 Chronic kidney disease, unspecified; N40.0 Benign prostatic hyperplasia without lower urinary tract symptoms; F10.11 Alcohol abuse, in remission; Z20.828 Contact with and (suspected) exposure to other viral communicable diseases; Z96.653 Presence of artificial knee joint, bilateral; Z79.899 Other long term (current) drug therapy

== ENCOUNTER → 2020-06-10 | Outpatient (CLI) | payer OTHER ==
[~2020-06-10] MED LIST changes: +CEFDINIR300 MG PO; +MIRALAX119 GM PO; +ZANAFLEX4 M1 PO
== END | disposition home or self-care (01) ==
LOC: M.PC 10:24
PROVIDERS: ATTEND Anesthesiology Pain Medicine
DX: M54.16 Radiculopathy, lumbar region (principal); G89.29 Other chronic pain; I10 Essential (primary) hypertension; E78.5 Hyperlipidemia, unspecified; M06.9 Rheumatoid arthritis, unspecified; Z96.653 Presence of artificial knee joint, bilateral; Z98.890 Other specified postprocedural states; Z79.899 Other long term (current) drug therapy

== ENCOUNTER → 2020-07-17 | Outpatient (CLI) | payer OTHER ==
[~2020-07-17] MED LIST changes: +HYDROCODONE-AP1 EA11 PO
== END | disposition home or self-care (01) ==
LOC: M.PC 10:00
PROVIDERS: ATTEND Anesthesiology Pain Medicine
DX: M54.16 Radiculopathy, lumbar region (principal); I10 Essential (primary) hypertension; E78.00 Pure hypercholesterolemia, unspecified; M06.9 Rheumatoid arthritis, unspecified; F41.9 Anxiety disorder, unspecified; Z79.899 Other long term (current) drug therapy; Z98.890 Other specified postprocedural states

== ENCOUNTER → 2020-09-25 | Outpatient (CLI) | payer OTHER | LOC: M.PC 10:31 | PROVIDERS: ATTEND Anesthesiology Pain Medicine | DX: M54.16 Radiculopathy, lumbar region (principal); N40.0 Benign prostatic hyperplasia without lower urinary tract symptoms; R39.198 Other difficulties with micturition; E78.00 Pure hypercholesterolemia, unspecified; M06.9 Rheumatoid arthritis, unspecified; G89.29 Other chronic pain; I10 Essential (primary) hypertension ==

== ENCOUNTER → 2020-12-16 | Outpatient (CLI) | payer OTHER ==
[~2020-12-16] MED LIST changes: +INDOMETHACIN 5050 M1 PO; +LOTENSIN20 MG PO
== END | disposition home or self-care (01) ==
LOC: M.PC 09:37
PROVIDERS: ATTEND Anesthesiology Pain Medicine
DX: M54.16 Radiculopathy, lumbar region (principal); G89.29 Other chronic pain; I10 Essential (primary) hypertension; E78.00 Pure hypercholesterolemia, unspecified; N40.1 Benign prostatic hyperplasia with lower urinary tract symptoms; M10.9 Gout, unspecified; Z98.890 Other specified postprocedural states; Z79.899 Other long term (current) drug therapy; Z87.891 Personal history of nicotine dependence; Z96.653 Presence of artificial knee joint, bilateral

== ENCOUNTER → 2021-01-13 | Outpatient (CLI) | payer OTHER | LOC: M.PC 09:10 | PROVIDERS: ATTEND Anesthesiology Pain Medicine | DX: M54.07 Panniculitis affecting regions of neck and back, lumbosacral region (principal); N40.0 Benign prostatic hyperplasia without lower urinary tract symptoms; I10 Essential (primary) hypertension; E78.00 Pure hypercholesterolemia, unspecified; M06.9 Rheumatoid arthritis, unspecified; G89.29 Other chronic pain; Z79.891 Long term (current) use of opiate analgesic; Z79.899 Other long term (current) drug therapy ==

== ENCOUNTER → 2021-02-10 | Outpatient (CLI) | payer OTHER ==
[~2021-02-10] MED LIST changes: +AMITRIPTYLINE H10 M1 PO
== END ==
LOC: M.PC 09:12
PROVIDERS: ATTEND Anesthesiology Pain Medicine
DX: M54.16 Radiculopathy, lumbar region (principal); N40.0 Benign prostatic hyperplasia without lower urinary tract symptoms; R39.198 Other difficulties with micturition; I10 Essential (primary) hypertension; E78.00 Pure hypercholesterolemia, unspecified; M06.9 Rheumatoid arthritis, unspecified; G89.29 Other chronic pain; Z79.891 Long term (current) use of opiate analgesic; Z79.899 Other long term (current) drug therapy

== ENCOUNTER → 2021-03-10 | Outpatient (CLI) | payer OTHER ==
[~2021-03-10] MED LIST changes: +AMITRIPTYLINE H25 M3 PO
== END ==
LOC: M.PC 09:29
PROVIDERS: ATTEND Anesthesiology Pain Medicine
DX: M54.16 Radiculopathy, lumbar region (principal); N40.0 Benign prostatic hyperplasia without lower urinary tract symptoms; I10 Essential (primary) hypertension; E78.00 Pure hypercholesterolemia, unspecified; M06.9 Rheumatoid arthritis, unspecified; Z79.891 Long term (current) use of opiate analgesic; Z79.899 Other long term (current) drug therapy

== ENCOUNTER → 2021-04-14 | Outpatient (CLI) | payer OTHER | LOC: M.PC 09:29 | PROVIDERS: ATTEND Anesthesiology Pain Medicine | DX: M54.16 Radiculopathy, lumbar region (principal); N40.0 Benign prostatic hyperplasia without lower urinary tract symptoms; I10 Essential (primary) hypertension; E78.00 Pure hypercholesterolemia, unspecified; M06.9 Rheumatoid arthritis, unspecified; G89.29 Other chronic pain; R39.198 Other difficulties with micturition; Z79.899 Other long term (current) drug therapy ==

== ENCOUNTER → 2021-06-09 | Outpatient (CLI) | payer OTHER | LOC: M.PC 10:50 | PROVIDERS: ATTEND Anesthesiology Pain Medicine | DX: M54.16 Radiculopathy, lumbar region (principal); M54.50 Low back pain, unspecified; M25.571 Pain in right ankle and joints of right foot; N40.0 Benign prostatic hyperplasia without lower urinary tract symptoms; R39.198 Other difficulties with micturition; I10 Essential (primary) hypertension; E78.00 Pure hypercholesterolemia, unspecified; G89.29 Other chronic pain; M06.9 Rheumatoid arthritis, unspecified; Z79.899 Other long term (current) drug therapy; Z88.2 Allergy status to sulfonamides ==

== ENCOUNTER → 2021-08-04 | Outpatient (CLI) | payer OTHER ==
[~2021-08-04] MED LIST changes: +HYDROCODON-ACE1 EAC5 PO; +NEURONTIN300 MG PO
== END ==
LOC: M.PC 10:00
PROVIDERS: ATTEND Anesthesiology Pain Medicine
DX: M54.16 Radiculopathy, lumbar region (principal); M54.17 Radiculopathy, lumbosacral region; I10 Essential (primary) hypertension; E78.00 Pure hypercholesterolemia, unspecified; M06.9 Rheumatoid arthritis, unspecified; G89.29 Other chronic pain; M79.671 Pain in right foot; Z88.8 Allergy status to other drugs, medicaments and biological substances; Z79.899 Other long term (current) drug therapy